=== PATIENT | male | born 1945 | race Caucasian/White ===

== ENCOUNTER → 2019-10-25 14:02 | Outpatient (BNVA) | payer MEDICARE, OTHER, SELFPAY | PROVIDERS: Visit Provider Nurse Practitioner Adult Health | DX: G43.119 Migraine with aura, intractable, without status migrainosus (principal); Z71.89 Other specified counseling | CPT/HCPCS: 99201; 99211 ==

== ENCOUNTER → 2019-12-20 07:43 | Outpatient (BNVA) | payer MEDICARE, OTHER, SELFPAY | PROVIDERS: Visit Provider Nurse Practitioner Adult Health | DX: G43.119 Migraine with aura, intractable, without status migrainosus (principal) | CPT/HCPCS: 99212; 99441 ==

== ENCOUNTER 2022-08-23 14:36 | Outpatient (CLI) | payer OTHER, SELFPAY ==
[2022-08-24 17:51] LABS: Rheumatoid Factor 16.1 IU/mL (<12.0)
[2022-08-25 08:53] LABS: Cyclic Citrullinated Peptide <2.5 U/mL (<5.0)
[2022-08-25 14:16] LABS: ANA Interpretation Positive (Negative); ANA Titer Pattern 1:80 Homogeneous
== END 2022-08-23 14:37 | disposition home or self-care (01) ==
LOC: PUL 14:39
PROVIDERS: Referring Provider Student in an Organized Health Care Education/Training Program; Visit Provider Student in an Organized Health Care Education/Training Program
DX: J84.10 Pulmonary fibrosis, unspecified (principal)
CPT/HCPCS: 86200; 86038; 86431

== ENCOUNTER 2022-11-25 15:58 | Outpatient (REF) | payer OTHER, SELFPAY ==
[2022-11-25 16:04] LABS: HCT 38.9 % (40.0-50.0); HGB 12.7 g/dL (13.5-17.5); MCH 30.4 pg (27.0-33.0); MCHC 32.6 % (32.0-36.0); MCV 93 fL (80-95); MPV 10.4 fL (8.0-11.0); Platelet Count 224 10^3/uL (130-400); RBC 4.18 10^6/uL (4.36-5.78); RDW 17.4 % (11.8-14.1); WBC 15.54 10^3/uL (4.4-10.8)
[2022-11-25 16:22] LABS: INR 1.1 (0.9-1.1); Prothrombin Time 11.3 sec (9.3-11.0)
[2022-11-25 16:58] LABS: ALT 21 U/L (16-63); AST 27 U/L (15-37); Albumin 2.8 g/dL (3.4-5.0); Alkaline Phosphatase 81 U/L (46-116); BUN 23 mg/dL (7-18); Bilirubin, Total 0.5 mg/dL (0.2-1.0); CREATININE 1.3 mg/dL (0.70-1.30); Calcium 8.4 mg/dL (8.5-10.1); Chloride 99 mmol/L (98-107); Estimated GFR 56.93 (mL/min/1.73m2); Glucose 115 mg/dL (74-106); Potassium 5.6 mmol/L (3.5-5.1); Sodium 136 mmol/L (136-145); Total Protein 6.6 g/dL (6.4-8.2)
[2022-11-26 07:39] LABS: Abs Immature Grans 0.14 10^3/uL (0.0-0.06); Absolute Basophil Count 0.05 10^3/uL (0.0-0.2); Absolute Eosinophil Count 0.06 10^3/uL (0.0-0.7); Absolute Monocyte Count 1.87 10^3/uL (0.1-0.8); Absolute Neutrophil Count 13.51 10^3/uL (1.2-6.7); Basophils % 0.3; Eosinophils % 0.4; Immature Grans % 0.9; Lymphocytes % 4.3; Monocytes % 11.5; Neutrophils % 82.6
== END 2022-11-25 15:59 | disposition home or self-care (01) ==
LOC: LBN 15:58
PROVIDERS: PCP Nurse Practitioner Family; Visit Provider Physician Assistant Surgical
DX: R79.1 Abnormal coagulation profile (principal); J84.112 Idiopathic pulmonary fibrosis; J84.10 Pulmonary fibrosis, unspecified
CPT/HCPCS: 80053; 85027; 85025; 85610

== ENCOUNTER 2023-09-20 15:23 | Outpatient (REF) | payer OTHER, SELFPAY ==
[2023-09-20 15:33] LABS: Abs Immature Grans 0.03 10^3/uL (0.0-0.06); Absolute Basophil Count 0.02 10^3/uL (0.0-0.2); Absolute Eosinophil Count 0.03 10^3/uL (0.0-0.7); Absolute Monocyte Count 0.68 10^3/uL (0.1-0.8); Absolute Neutrophil Count 4.67 10^3/uL (1.2-6.7); Basophils % 0.3; Eosinophils % 0.5; HCT 35.7 % (40.0-50.0); HGB 12.2 g/dL (13.5-17.5); Immature Grans % 0.5; Lymphocytes % 8.4; MCH 32.6 pg (27.0-33.0); MCHC 34.2 % (32.0-36.0); MCV 96 fL (80-95); Monocytes % 11.5; Neutrophils % 78.8; Platelet Count 373 10^3/uL (130-400); RBC 3.74 10^6/uL (4.36-5.78); RDW 13.6 % (11.8-14.1); RDW-SD 47.5 fL; WBC 5.93 10^3/uL (4.4-10.8)
[2023-09-20 16:05] LABS: ALT 18 U/L (16-63); AST 22 U/L (15-37); Albumin 3.6 g/dL (3.4-5.0); Alkaline Phosphatase 50 U/L (46-116); Anion Gap 4.3 mmol/L (3-11); BUN 12 mg/dL (7-18); Bilirubin, Total 0.5 mg/dL (0.2-1.0); CO2 29.7 mmol/L (21.0-32.0); Calcium 9.5 mg/dL (8.5-10.1); Chloride 95 mmol/L (98-107); Estimated GFR 77.52 (mL/min/1.73m2); Glucose 112 mg/dL (74-106); Potassium 4.9 mmol/L (3.5-5.1); Sodium 129 mmol/L (136-145); Total Protein 8.1 g/dL (6.4-8.2)
== END 2023-09-20 15:24 | disposition home or self-care (01) ==
LOC: LBN 15:23
PROVIDERS: PCP Neuromusculoskeletal Medicine & OMM; Visit Provider Physician Assistant Surgical
DX: J44.9 Chronic obstructive pulmonary disease, unspecified (principal); J84.112 Idiopathic pulmonary fibrosis
CPT/HCPCS: 80053; 85025

== ENCOUNTER 2023-12-29 17:43 | Outpatient (REF) | payer OTHER, SELFPAY ==
[2023-12-29 15:01] LABS: Abs Immature Grans 0.02 10^3/uL (0.0-0.06); Absolute Basophil Count 0.03 10^3/uL (0.0-0.2); Absolute Lymphocyte Count 0.71 10^3/uL (1.2-3.4); Absolute Monocyte Count 0.77 10^3/uL (0.1-0.8); Absolute Neutrophil Count 4.57 10^3/uL (1.2-6.7); Basophils % 0.5 %; Eosinophils % 4.7 %; HCT 30.8 % (40.0-50.0); HGB 10.1 g/dL (13.5-17.5); Immature Grans % 0.3 %; Lymphocytes % 11.1 %; MCH 33.1 pg (27.0-33.0); MCHC 32.8 % (32.0-36.0); MCV 101 fL (80-95); MPV 10.2 fL (8.0-11.0); Neutrophils % 71.4 %; Platelet Count 265 10^3/uL (130-400); RBC 3.05 10^6/uL (4.36-5.78); RDW 14.6 % (11.8-14.1); RDW-SD 54.4 fL
[2023-12-29 15:30] LABS: ALT 14 U/L (16-63); AST 20 U/L (15-37); Albumin 3.2 g/dL (3.4-5.0); Alkaline Phosphatase 52 U/L (46-116); Anion Gap 5.8 mmol/L (3-11); BUN 8 mg/dL (7-18); Bilirubin, Total 0.6 mg/dL (0.2-1.0); CO2 31.2 mmol/L (21.0-32.0); Calcium 8.4 mg/dL (8.5-10.1); Chloride 98 mmol/L (98-107); Estimated GFR 77.04 (mL/min/1.73m2); Glucose 105 mg/dL (74-106); Potassium 4.7 mmol/L (3.5-5.1); Sodium 135 mmol/L (136-145); Total Protein 6.6 g/dL (6.4-8.2)
== END 2023-12-29 17:44 | disposition home or self-care (01) ==
LOC: LBN 17:43
PROVIDERS: PCP Neuromusculoskeletal Medicine & OMM; Visit Provider Physician Assistant Surgical
DX: J44.9 Chronic obstructive pulmonary disease, unspecified (principal); J84.112 Idiopathic pulmonary fibrosis
CPT/HCPCS: 80053; 85025